=== PATIENT | female | born 1955 | race Caucasian/White ===

== ENCOUNTER 2018-07-07 11:47 | Inpatient (IN) | payer MEDICAID ==
[2018-07-07] MEDS ORDERED: BACLOFEN20 M1 PO (11:53)
[2018-07-07] MEDS ORDERED: KLONOPIN1 MG PO (11:54)
[2018-07-07] MEDS ORDERED: TOPAMAX50 MG PO (11:54)
[2018-07-07 13:00] VITALS: BP 153/77
[2018-07-07 14:00] VITALS: BP 141/68
[2018-07-07 14:36] LABS: BASOPHILS 0.7 % (0-2); EOSINOPHILS 1.8 % (0-7); HEMATOCRIT 39.2 % (36.0-48.0); IMMATURE GRANULOCYTES 0.8 % (0-5); LYMPHOCYTES 24.4 % (15-50); MCH 30.5 pg (26.0-34.0); MCHC 35.7 g/dL (31.0-37.0); MCV 85.4 fL (80.0-100.0); MEAN PLATELET VOLUME 8.9 fL (7.4-10.4); MONOCYTES 6.5 % (2-11); NEUTROPHILS 65.8 % (40-80); PLATELET COUNT 198 10x3/uL (130-400); RBC 4.59 10x6/uL (4.00-5.40); RDW 13.2 % (11.5-14.5); WBC 7.4 10x3/uL (4.8-10.8)
[2018-07-07 14:44] LABS: INR 0.96 (0.85-1.17); PROTIME 12.3 SECONDS (11.6-15.0)
[2018-07-07 14:49] LABS: ALBUMIN 3.5 g/dL (3.4-5.0); ALKALINE PHOSPHATASE 108 U/L (46-116); ALT (SGPT) 32 U/L (10-68); BILIRUBIN - TOTAL 0.37 mg/dL (0.2-1.3); CALC OSMOLALITY 288 mosm/kg (275-300); CALCIUM 8.5 mg/dL (8.5-10.1); CARBON DIOXIDE 25.3 mmol/L (21.0-32.0); CHLORIDE - SERUM 109 mmol/L (98-107); CREATININE - SERUM 0.9 mg/dL (0.6-1.3); GLUCOSE 88 mg/dL (74-106); POTASSIUM - SERUM 3.8 mmol/L (3.5-5.1); SODIUM 144 mmol/L (136-145); UREA NITROGEN 20 mg/dL (7-18); eGFR NON AFRICAN AMERICAN 68 mL/min (90-120)
[2018-07-07 15:00] VITALS: BP 139/73
[2018-07-07 15:01] LABS: CKMB 0.6 U/L (0.0-3.6); TROPONIN-I < 0.017 ng/mL (0.000-0.060)
[2018-07-07 16:00] VITALS: BP 127/62
[2018-07-07] MEDS ORDERED: MOBIC7.5 MG PO (17:12)
[2018-07-07 17:15] VITALS: BMI 27.5
--- NOTE | 2018-07-07 17:27 | MORECARE ---
CASE MANAGEMENT DISCHARGE SUMMARY PATIENT: FABY JADE UNIT: [id number] ADM DATE: 07/07/18 AGE: 62 : 59 SEX: F ROOM/BED: D.2232 AUTHOR: NEENA,DOC PHYSICIAN: REFERRING PHYSICIAN: JODY PEREZ MD DATE OF SERVICE: 07/07/18 Discharge Plan Patient Name: FABY JADE Facility: [facility]:[place] : 1955 Planned Disposition: Home Anticipated Discharge Date: 07/09/18 Discharge Date: Expected LOS: 2 Initial Reviewer: [email or web address] Initial Review Date: 07/07/2018 Generated: 07/07/18 6:27 pm DCP- Discharge Planning Updated by [email or web address]: Jayne Maciel on 07/07/18 4:[address] Patient Name: FABY JADE Admission Status: ER Accout number: [id number] Admission Date: 07-07-2018 : 1955 Admission Diagnosis: Attending: JODY PEREZ Current LOS: 1 Anticipated DC Date: 07-09-2018 Planned Disposition: Home Primary Insurance: MEDICAID [place] Discharge Planning Comments: CM met with patient to complete initial dc planning assessment. CM educated patient on the CM role and verbal consent given by patient to complete assessment. CM verified patient's address, phone number, and emergency contact phone numbers. Patient lives at home alone and reports she is independent in her care. At discharge patient plans to return home alone and feels this is a safe discharge. CM discussed availability of home health, rehab services, and medical equipment. Patient denied known discharge needs at this time. Patient reports her daughter Ashanti will transport her home at time of discharge. CM will continue to follow and will assist as needed with dc plans/needs. General Practitioner: Jayne Maciel RN, [facility] DCPIA - Discharge Planning Initial Assessment Updated by [email or web address]: Jayne Maciel on 07/07/18 5:24 pm * Is the patient Alert and Oriented? Yes * How many steps to enter\exit or inside your home? one * PCP Dr. Reina * Pharmacy [facility] on [address] * Preadmission Environment Home Alone * ADLs Independent * Equipment Glucometer * Other Equipment hypoglycemia * List name and contact numbers for known caregivers / representatives who currently or will assist patient after discharge: Argenis Wade - daughter - [phone] Ashanti Palmer - daughter - [phone] * Verbal permission to speak to the caregivers and representatives has been obtained from the patient. Yes * Community resources currently utilized None * Additional services required to return to the preadmission environment? No * Can the patient safely return to the preadmission environment? Yes * Has this patient been hospitalized within the prior 30 days at any hospital? No Patient Name: FABY JADE Page [id number] at 1727 All edits/amendments must be made on the electronic document DICTATION DATE: 07/07/181725 COLLAR PACKER: ONEAL 07/07/181725 RPT#: [id number] DC DATE: STATUS: ADM IN [facility] [address] [place] [address] END OF REPORT
[2018-07-08] VITALS: BP 128/61
--- NOTE | 2018-07-08 03:02 | NUR ---
I have reviewed this patient and I concur with the Shift Assessment completed by the Licensed Practical Nurse today this shift.
[2018-07-08 04:00] VITALS: BP 129/70
[2018-07-08 06:16] LABS: BASOPHILS 1.2 % (0-2); EOSINOPHILS 3.1 % (0-7); HEMATOCRIT 36.9 % (36.0-48.0); HEMOGLOBIN 12.6 g/dL (12-16); LYMPHOCYTES 38.1 % (15-50); MCH 29.7 pg (26.0-34.0); MCHC 34.1 g/dL (31.0-37.0); MEAN PLATELET VOLUME 9.2 fL (7.4-10.4); MONOCYTES 9.9 % (2-11); NEUTROPHILS 46.7 % (40-80); PLATELET COUNT 188 10x3/uL (130-400); RBC 4.24 10x6/uL (4.00-5.40); RDW 13.7 % (11.5-14.5)
[2018-07-08 06:22] LABS: WBC 5.1 10x3/uL (4.8-10.8)
[2018-07-08 06:30] LABS: ANION GAP 9.9 mmol/L (8-16); CALCIUM 8.3 mg/dL (8.5-10.1); CARBON DIOXIDE 27.2 mmol/L (21.0-32.0); CREATININE - SERUM 1.1 mg/dL (0.6-1.3); POTASSIUM - SERUM 4.1 mmol/L (3.5-5.1)
--- NOTE | 2018-07-08 07:45 | NUR ---
RECEIVED A/A/OX4. STATES PAIN IS 2/10 BUT NOT REQUIRING ANY PAIN MEDS AND NO REQUESTS VOICED. ASSESSMENT COMPLETED AND WILL CONTINUE POC.
[2018-07-08] MEDS ORDERED: MIRALAX17 GM PO (10:16)
[2018-07-08 10:19] VITALS: BP 125/67
[2018-07-08] MEDS ORDERED: PREDNISONE10 MG PO (10:20)
[2018-07-08] MEDS ORDERED: DEMEROL100 MG PO (11:36)
--- NOTE | 2018-07-08 11:49 | NUR ---
RX FOR PREDNISONE AND MIRALAX CALLED TO [facility], [facility] CLOSED ON TUESDAY.
--- NOTE | 2018-07-08 13:15 | NUR ---
DISCHARGE INSTRUCTIONS REVIEWED WITH PT AND VERBALIZES UNDERSTANDING WITH NO QUESTIONS. SL REMOVED WITH TIP INTACT. LEFT FLOOR VIA W/C WITH ALL PERSONAL BELONGINGS AND LEFT FACILITY VIA PRIVATE VEHICLE WITH HER DAUGHTER.
--- NOTE | 2018-07-08 15:37 | MORECARE ---
CASE MANAGEMENT DISCHARGE SUMMARY PATIENT: FABY JADE UNIT: [id number] ADM DATE: 07/07/18 AGE: 62 : 59 SEX: F ROOM/BED: D.2232 AUTHOR: NEENA,DOC PHYSICIAN: REFERRING PHYSICIAN: JODY PEREZ MD DATE OF SERVICE: 07/08/18 Discharge Plan Patient Name: FABY JADE Facility: [facility]:[place] : 1955 Planned Disposition: Home Anticipated Discharge Date: 07/09/18 Discharge Date: 07/08/2018 Expected LOS: 2 Initial Reviewer: [email or web address] Initial Review Date: 07/07/2018 Generated: 07/08/18 4:37 pm DCP- Discharge Planning Updated by [email or web address]: Jayne Maciel on 07/07/18 4:[address] Patient Name: FABY JADE Admission Status: ER Accout number: [id number] Admission Date: 07-07-2018 : 1955 Admission Diagnosis: Attending: JODY PEREZ Current LOS: 1 Anticipated DC Date: 07-09-2018 Planned Disposition: Home Primary Insurance: MEDICAID [place] Discharge Planning Comments: CM met with patient to complete initial dc planning assessment. CM educated patient on the CM role and verbal consent given by patient to complete assessment. CM verified patient's address, phone number, and emergency contact phone numbers. Patient lives at home alone and reports she is independent in her care. At discharge patient plans to return home alone and feels this is a safe discharge. CM discussed availability of home health, rehab services, and medical equipment. Patient denied known discharge needs at this time. Patient reports her daughter Ashanti will transport her home at time of discharge. CM will continue to follow and will assist as needed with dc plans/needs. Proof Passer: Jayne Maciel RN, [facility] DCPIA - Discharge Planning Initial Assessment Updated by [email or web address]: Jayne Maciel on 07/07/18 5:24 pm * Is the patient Alert and Oriented? Yes * How many steps to enter\exit or inside your home? one * PCP Dr. Reina * Pharmacy [facility] on [address] * Preadmission Environment Home Alone * ADLs Independent * Equipment Glucometer * Other Equipment hypoglycemia * List name and contact numbers for known caregivers / representatives who currently or will assist patient after discharge: Argenis Wade - daughter - [phone] Ashanti Palmer - daughter - [phone] * Verbal permission to speak to the caregivers and representatives has been obtained from the patient. Yes * Community resources currently utilized None * Additional services required to return to the preadmission environment? No * Can the patient safely return to the preadmission environment? Yes * Has this patient been hospitalized within the prior 30 days at any hospital? No Last DP export: 07/07/18 4:27 p Patient Name: FABY JADE Page [id number] at 1537 All edits/amendments must be made on the electronic document DICTATION DATE: 07/08/181535 SALES AND MARKETING ADMINISTRATOR: ONEAL 07/08/181535 RPT#: [id number] DC DATE:07/08/18 STATUS: DIS IN [facility] [address] [place] [address] END OF REPORT
== END 2018-07-08 13:15 | disposition home or self-care (01) | DRG 83 ==
LOC: D.ER 11:47 → D.MS 16:25
PROVIDERS: Family Medicine; ADMIT Internal Medicine Nephrology; ATTEND Internal Medicine Nephrology
DX: S06.5X9A Traumatic subdural hemorrhage with loss of consciousness of unspecified duration, initial encounter (principal); S22.059A Unspecified fracture of T5-T6 vertebra, initial encounter for closed fracture; V49.49XA Driver injured in collision with other motor vehicles in traffic accident, initial encounter